=== PATIENT | female | born 1980 | race Caucasian/White ===

== ENCOUNTER 2019-11-15 09:00 | Emergency (ER) | payer OTHER, SELFPAY ==
[2019-11-15 09:03] VITALS: BP 139/118; PULSE 114; RESP 18; TEMP 36.7; O2SAT 98; BMI 37.1
--- NOTE | 2019-11-15 09:07 | ED_ITS ---
Entered by Rose Marie Patel, acting as scribe for Glen Fritz DO HPI - Neuro Symptoms/Deficit General: Chief Complaint: Neuro Symptoms/Deficit Stated Complaint: SMILE NOT RIGHT Time Seen by Provider: 11/15/19 09:08 Source: patient and family Mode of arrival: ambulatory Limitations: no limitations History of Present Illness: HPI Narrative: 38 yo female presents with Facial droop on the R and R eye droop. pt states this started yesterday. pt denies weakness in upper arms or lower legs. Patient has also noticed abnormal sensation in the anterior portion of her tongue. She has had some tearing of the right eye as well. On further discussion she notes it all began with onset of pain in her right ear and then the other symptoms began to progress. She is not had any difficulty with speech or swallowing. No difficulty with gait or balance. Onset (ago): day(s) (yesterday) Timing confirmed by: spouse and family member Location: right face History of same: No Severity: moderate Quality: constant Relieving factors: none Exacerbating factors: none Context: gradual onset Associated symptoms: Reports no associated symptoms; Deny chest pain, malaise, nausea or vomiting Treatments Prior to Arrival: none Review of Systems General: Reports: 10 or more systems reviewed and unremarkable except in HPI and below Const: Denies: fever, chills, body aches, change in appetite, fatigue or malaise ENMT: Denies: throat pain, ear pain, nasal discharge or nasal congestion Card: Denies: chest pain, edema, shortness of breath on exertion or shortness of breath when lying down Resp: Denies: shortness of breath, productive cough or non-productive cough GI: Denies: abdominal pain, nausea, vomiting, vomiting blood, coffee grounds in vomit, diarrhea, constipation, bloating, blood in stool or black tarry stool : Denies: flank pain, difficulty urinating, painful urination, urinary frequency or urinary urgency Skin/Breast: Denies: rash or itching Neuro: Reports: other (R face- mouth and R eye) PFS ED PFSH: Social History Smoking and tobacco status: never smoked NIH stroke score NIHSS: Level Of Consciousness - 1a: 0 Level Of Consciousness Questions - 1b: Both Correct Level Of Consciousness Commands - 1c: Both Correct Best Gaze - 2: Normal Visual [place] - 3: No Visual Loss Facial Palsy - 4: Partial Paralysis Motor Arm Right - 5: No Drift Motor Arm Left - 5: No Drift Motor Leg Right - 6: No Drift Motor Leg Left - 6: No Drift Limb Ataxia - 7: Absent Sensory - 8: Normal Best Language - 9: No Aphasia Dysarthia - 10: Normal Extinction And Inattention - 11: 0 Score: Total Score: 2 Physical Exam Narrative: EXAM NARRATIVE: pt has facial weakness on the Right, Right eye droop and watering. There is no sparing of the forehead. Const: COMMON NORMALS: no apparent distress GENERAL APPEARANCE: cooperative and comfortable ORIENTATION/CONSCIOUSNESS: Yes awake, Yes oriented to person, Yes oriented to place and Yes oriented to time HENMT: COMMON NORMALS: normocephalic, head/scalp atraumatic, hearing grossly normal bilaterally, external ears normal, EAC's normal, TM's normal bilaterally, nasal mucous membranes and turbinates normal, moist oral mucous membranes and oropharynx normal HEAD & SCALP: normocephalic and atraumatic NOSE: nasal mucous membranes and turbinates normal EXTERNAL EAR: Yes external ears normal EXTERNAL AUDITORY CANAL: EAC's normal TYMPANIC MEMBRANE: TM's normal bilat erally Neck/C-Spine: COMMON NORMALS: full ROM, no lymphadenopathy, supple and no JVD Lymph: LYMPHATIC: no lymphadenopathy noted and no lymphedema noted Resp: COMMON NORMALS: normal respiratory effort, no retractions, no use of accessory muscles and clear to auscultation bilaterally AUSCULTATION: clear to auscultation bilaterally Cardio: COMMON NORMALS: no JVD, regular rate, regular rhythm and no murmurs RATE: regular rate RHYTHM: regular rhythm GI: COMMON NORMALS: soft to palpation and no hepatosplenomegaly AUSCULTATION: Yes normoactive bowel sounds PALPATION: Yes soft, No tender, No guarding and Yes no hepatosplenomegaly Extremity: COMMON NORMALS: normal to inspection, normal capillary refill, no clubbing, cyanosis or edema, no calf tenderness and no pedal edema Neuro: SENSORIUM/ORIENTATION: Yes oriented to person, Yes oriented to place and Yes oriented to time OTHER: Stroke score is completed see below. Romberg's is negative. Lawr-du-idso is normal. Skin: COMMON NORMALS: no rashes or lesions noted GENERAL SKIN EXAM: no rashes or lesions noted Course ED course: Patient presents with essentially classic Burris's palsy symptoms reviewed with her in detail we will go ahead and put her on some prednisone for now did advise her this will affect her blood sugar significantly she is on a 5- day course of 60 mg follow-up with her primary care doctor. Vital Signs: Vital signs: Vital Signs Temperature 98.0 F 11/15/19 09:03 Pulse Rate 114 H 11/15/19 09:03 Respiratory Rate 18 11/15/19 09:03 Blood Pressure 139/118 11/15/19 09:03 Pulse Oximetry 98 11/15/19 09:03 Discharge Plan Discharge Patient Disposition: Home, Self-Care Clinical Impression: Burris's palsy Condition: Stable Prescriptions: New prednisone 20 mg tablet 20 mg PO DAILY Qty: 15 RF: 0 Discharge Orders: Discharge Order (Routine); Ordered 11/15/19 Ordered By: Glen Fritz Referrals: Isabelle Salas MD [Family Provider] - Discharge Diet: Usual diet Discharge Activity: Resume usual activity Activity Restrictions/Additional Instructions: Follow-up with your primary care doctor as needed Discharge Date/Time: 11/15/19 09:45 Coding Level of Care Code ED Manager Of Health for Chg Fwd Exam Comprehensive The documentation recorded by the Jorge dickens Bridget Annette, accurately reflects the service I personally performed and the decisions made by Catrina danielson Curtis L, DO Nov 15, 2019 09:00
== END 2019-11-15 09:45 | disposition home or self-care (01) ==
LOC: ER 09:52
PROVIDERS: Emergency Provider Family Medicine; Family Provider Family Medicine
DX: G51.0 Bell's palsy (principal)
CPT/HCPCS: 99281

== ENCOUNTER → 2020-05-08 11:38 | Outpatient (BNVA) | payer OTHER, SELFPAY | PROVIDERS: Family Provider Family Medicine; Visit Provider Nurse Practitioner Women's Health | DX: E11.9 Type 2 diabetes mellitus without complications (principal) | CPT/HCPCS: 83036 ==

== ENCOUNTER 2020-09-17 07:29 | Outpatient (CLI) | payer OTHER, SELFPAY ==
[2020-09-17 08:31] LABS: Basophils # 0.1 10^3/uL (0.0-0.1); Basophils % 0.8 %; Eosinophils # 0.1 10^3/uL (0.0-0.8); Eosinophils % 1.8 %; Hematocrit 46.2 % (37.0-47.0); Hemoglobin 15.7 g/dL (11.5-15.3); Lymphocytes % 25.1 %; Mean Corpuscular Hemoglobin 29.1 pg (28.0-34.0); Mean Corpuscular Volume 85.6 fL (81-99); Mean Platelet Volume 9.5 fL (7.4-10.4); Monocytes # 0.3 10^3/uL (0.2-0.9); Monocytes % 4.3 %; Neutrophils # 5.32 10^3/uL (1.8-7.7); Neutrophils % 66.7 %; Nucleated Red Blood Cells % 0 %; Platelet Count 270 10^3/cmm (130-400); Red Cell Distribution Width 14.8 % (12.1-15.1)
[2020-09-17 08:57] LABS: Alanine Aminotransferase 35 U/L (0-33); Alkaline Phosphatase 104 IU/L (35-105); Anion Gap 14.1 (5-19); Aspartate Amino Transferase 22 U/L (0-32); Blood Urea Nitrogen 10 mg/dL (6-20); Carbon Dioxide 26 mmol/L (22-29); Chloride 100 mmol/L (98-107); Cholesterol 171 mg/dL (0-200); Globulin 2.9 g/dL (1.3-4.6); Glomerular Filtration Rate 136.6 mL/min (90-130); Glucose 211 mg/dL (65-115); HDL Cholesterol 45 mg/dL (60-100); LDL Cholesterol Calculated 95 mg/dL (50-129); LDL HDL Ratio 2.11 RATIO (0.00-3.22); Osmolality Calculated 287 mOsm/kg (285-295); Potassium 4.1 mmol/L (3.5-5.1); Sodium 136 mmol/L (136-145); Thyroid Stimulating Hormone 1.33 uIU/mL (0.27-4.20); Total Bilirubin 0.6 mg/dL (0.15-1.2); Total Protein 6.9 g/dL (6.6-8.7); Triglycerides 153 mg/dL (0-150)
[2020-09-17 09:01] LABS: Creatinine Urine, Random 62 mg/dL (28-217)
[2020-09-17 09:24] LABS: Microalbum Creatinine Ratio Ur 16 mg/dL (0-20); Microalbumin Random Urine < 1 ug/dL (0-20)
[2020-09-17 13:10] LABS: Estmated Average Glucose 194; Hemoglobin A1C 8.4 % (4.0-6.0)
== END 2020-09-17 07:30 | disposition home or self-care (01) ==
LOC: LAB 07:33
PROVIDERS: PCP Family Medicine; Visit Provider Family Medicine
DX: Z91.19 Patient's noncompliance with other medical treatment and regimen (principal); D58.2 Other hemoglobinopathies
CPT/HCPCS: 36415; 80053; 80061; 82044; 83036; 84443; 85025

== ENCOUNTER 2020-12-17 06:43 | Outpatient (CLI) | payer OTHER, SELFPAY ==
[2020-12-17 07:29] LABS: Alanine Aminotransferase 40 U/L (0-33); Alkaline Phosphatase 100 IU/L (35-105); Anion Gap 12.2 (5-19); Aspartate Amino Transferase 22 U/L (0-32); Blood Urea Nitrogen 12 mg/dL (6-20); Calcium 8.9 mg/dL (8.5-10.5); Carbon Dioxide 27 mmol/L (22-29); Chloride 101 mmol/L (98-107); Globulin 3.2 g/dL (1.3-4.6); Glomerular Filtration Rate 175.9 mL/min (90-130); Glucose 246 mg/dL (65-115); Osmolality Calculated 290 mOsm/kg (285-295); Potassium 4.2 mmol/L (3.5-5.1); Sodium 136 mmol/L (136-145); Total Bilirubin 0.5 mg/dL (0.15-1.2); Total Protein 7.2 g/dL (6.6-8.7)
[2020-12-17 07:31] LABS: Estmated Average Glucose 220; Hemoglobin A1C 9.3 % (4.0-6.0)
== END 2020-12-17 06:44 | disposition home or self-care (01) ==
LOC: LAB 06:45
PROVIDERS: PCP Family Medicine; Visit Provider Family Medicine
DX: E11.9 Type 2 diabetes mellitus without complications (principal); E78.1 Pure hyperglyceridemia; G47.00 Insomnia, unspecified; K76.0 Fatty (change of) liver, not elsewhere classified
CPT/HCPCS: 36415; 80053; 83036

== ENCOUNTER 2021-01-15 16:37 | Outpatient (CLI) | payer OTHER, SELFPAY ==
--- NOTE | 2021-01-15 16:46 | XRR_ITS ---
PROCEDURE INFORMATION: Exam: XR Left Humerus Exam date and time: 01/15/2021 4:48 PM Age: 40 years old Clinical indication: Pain; Elbow; Left; Additional info: Pain lt. Upper arm TECHNIQUE: Imaging protocol: XR Left humerus. Views: 2 or more views. Total images: 2 COMPARISON: No relevant prior studies available. FINDINGS: Bones/joints: Normal. Soft tissues: Normal. XR/[place] [id number] IMPRESSION: No acute findings.
--- NOTE | 2021-01-15 16:47 | XRR_ITS ---
PROCEDURE INFORMATION: Exam: XR Cervical Spine Exam date and time: 01/15/2021 4:48 PM Age: 40 years old Clinical indication: Neck pain; Additional info: Acute neck pain TECHNIQUE: Imaging protocol: XR of the cervical spine. Views: 2 or 3 views. Total images: 3 COMPARISON: No relevant prior studies available. FINDINGS: Bones/joints: No visible acute osseous abnormality. Evidence of early degenerative disease. Intervertebral disc space heights preserved. No visible significant facet arthrosis. Early spondylosis deformans. No spondylolisthesis. Soft tissues: Unremarkable. XR/XR cervical spine 3V* [id number] IMPRESSION: Nonacute.
== END 2021-01-15 16:38 | disposition home or self-care (01) ==
PROVIDERS: PCP Family Medicine; Visit Provider Nurse Practitioner Family
DX: M79.622 Pain in left upper arm (principal); M25.522 Pain in left elbow; M54.2 Cervicalgia; V89.2XXA Person injured in unspecified motor-vehicle accident, traffic, initial encounter
CPT/HCPCS: 72040; 73060

== ENCOUNTER 2021-03-04 15:59 | Outpatient (CLI) | payer OTHER, SELFPAY ==
--- NOTE | 2021-03-04 16:13 | MR_ITS ---
WS: [id number] MRI OF THE LEFT ELBOW WITHOUT GADOLINIUM ENHANCEMENT INDICATION: Left elbow pain. Left elbow trauma. TECHNIQUE: MRI left elbow without gadolinium enhancement. Axial T1 and T2 coronal T1 PD coronal STIR sagittal PD imaging axial FSPGR FINDINGS: Normal radial head and neck. Normal olecranon. Mild soft tissue edema dorsal elbow. No evid ence of olecranon bursitis. Normal coronoid process. Irregularity with increased signal and edema involving the lateral humeral epicondyle and capitellum . Increased signal involving the common extensor tendon origin consistent with partial tear and tendi nitis. Small amount of fluid along the origin of the common extensor tendon. Recommend correlation fo r lateral elbow pain. Slight irregularity involving the lateral humeral epicondyle. CT could be obtai madhav to evaluate for a small avulsion fracture. Small amount of fluid along the radial collateral liga ment which appears intact. Normal medial epicondyle. Normal bone marrow signal in the distal humeral shaft. Normal ulnar collate ral ligament. MR/MR elbow LT wo con* [id number] IMPRESSION: 1. Increased signal involving the common extensor tendon origin consistent wit h partial tear and tendinitis. 2. Radial head and neck appear normal. 3. Irregularity with increased signal and edema involving the lateral humeral epicondyle and capitellum.CT could be obtained to evaluate for a small avulsion fracture. 4. Small amount of fluid along the radial collateral ligament which appears in tact.
== END 2021-03-04 16:00 | disposition home or self-care (01) ==
LOC: RADSHAW 16:04
PROVIDERS: PCP Family Medicine; Visit Provider Family Medicine
DX: M25.522 Pain in left elbow (principal); R60.0 Localized edema
CPT/HCPCS: 73221

== ENCOUNTER 2021-04-30 14:30 | Outpatient (CLI) | payer OTHER, SELFPAY ==
--- NOTE | 2021-04-30 14:33 | MM_ITS ---
WS: [id number] SCREENING DIGITAL MAMMOGRAM WITH CAD HISTORY: SCREENING COMPARISON: 12/06/2018 Bilateral CC and MLO views submitted. Computer aided detection analyzed. Breast composition: There are scattered areas of fibroglandular density. No suspicious masses, microc alcifications or architectural distortion. MM/[place] [id number] IMPRESSION: BI-RADS: 1-Negative FOLLOW UP: 1 Year Follow-up
== END 2021-04-30 14:31 | disposition home or self-care (01) ==
LOC: RADSHAW 14:32
PROVIDERS: PCP Family Medicine; Visit Provider Family Medicine
DX: Z12.31 Encounter for screening mammogram for malignant neoplasm of breast (principal)
CPT/HCPCS: 77067

== ENCOUNTER 2022-05-24 10:16 | Outpatient (CLI) | payer OTHER, SELFPAY ==
--- NOTE | 2022-05-24 10:22 | MM_ITS ---
WS: [id number] BILATERAL SCREENING DIGITAL TOMOSYNTHESIS MAMMOGRAM WITH CAD HISTORY: SCREENING COMPARISON: 04/30/2021 and 12/06/2018 Bilateral CC and MLO views with tomosynthesis and synthetic mammography submitted. Computer aided det ection analyzed. Breast composition: There are scattered areas of fibroglandular density. No suspicious masses, microc alcifications or architectural distortion. MM/[place] [id number] IMPRESSION: BI-RADS: 1-Negative FOLLOW UP: 1 Year Follow-up
== END 2022-05-24 10:17 | disposition home or self-care (01) ==
PROVIDERS: PCP Family Medicine; Visit Provider Family Medicine
DX: Z12.31 Encounter for screening mammogram for malignant neoplasm of breast (principal)
CPT/HCPCS: 77063; 77067

== ENCOUNTER 2023-06-18 13:03 | Emergency (ER) | payer OTHER, SELFPAY ==
[2023-06-18 13:26] VITALS: BP 144/82; PULSE 129; RESP 18; TEMP 38.9; O2SAT 98; BMI 37.1
--- NOTE | 2023-06-18 13:40 | XRR_ITS ---
PROCEDURE INFORMATION: Exam: XR Chest Exam date and time: 06/18/2023 2:04 PM Age: 42 years old Clinical indication: Fever TECHNIQUE: Imaging protocol: Radiologic exam of the chest. Views: 1 view. COMPARISON: CR XR cervical spine 3V* [id number] 01/15/2021 4:51 PM FINDINGS: Lungs: Unremarkable. No consolidation. Pleural spaces: Unremarkable. No pleural effusion. No pneumothorax. Heart/Mediastinum: Unremarkable. No cardiomegaly. Bones/joints: Unremarkable. XR/XR chest 1V portable [id number] IMPRESSION: No acute findings.
--- NOTE | 2023-06-18 13:43 | ED_ITS ---
HPI - Headache General: Chief Complaint: Headache Stated Complaint: headache, Fever, bit by cat monday Time Seen by Provider: 06/18/23 13:40 History of Present Illness: 42-year-old female comes in today for complaints of fever starting on Monday. Patient reports 1 week ago she was bit by a cat and is concerned she may have gotten infection from the cat or has a urinary tract infection. Patient reports feeling weak and has a headache with the fever. Patient appears unwell but not toxic. Patient is alert and oriented. Patient moves all extremities well. Examination of the wound from the cat bite note some mild redness at the puncture sites. No significant induration or swelling. Patient has a history of type 2 diabetes and takes medicine for depression. Associated symptoms: Reports fever(s) Review of Systems Const: Reports: fever(s) : Reports: difficulty voiding PFSH ED PFSH: Medical History Anxiety Genital herpes H/O Burris's palsy No pertinent past medical history neghx: htn,thyroid,dvt/pe Type 2 diabetes mellitus Surgical History H/O carpal tunnel repair Both--Performed at [facility] [place] and surgical center H/O section --2001 2--2005 11--2010 Family History Father Hypertension Diabetes Mother Diabetes Grandmother Heart disease Maternal grandmother Ovarian cancer Maternal grandmother Uterine cancer Maternal grandmother Family/Other Colon cancer Paternal uncle Breast cancer Paternal aunt Maternal great aunt Paternal great aunt Grandfather Stroke Maternal grandfather Denies family history of Hyperlipidemia Family history of thyroid problem Social History Additional social history: - Tobacco use: Denies Alcohol use: Denies Drug use: Denies Physical Exam Const: COMMON NORMALS: alert HENMT: COMMON NORMALS: normocephalic HEAD & SCALP: normocephalic Neck/C-Spine: COMMON NORMALS: full ROM and no meningeal signs Resp: COMMON NORMALS: normal respiratory effort and clear to auscultation bilaterally AUSCULTATION: clear to auscultation bilaterally Cardio: COMMON NORMALS: regular rate and regular rhythm RATE: regular rate RHYTHM: regular rhythm GI: COMMON NORMALS: Soft to palpation and non-tender PALPATION: Yes Soft to palpation : COMMON NORMALS: Yes no CVA tenderness BLADDER/KIDNEY EXAM: Yes no CVA tenderness Back/Pelvis: COMMON NORMALS: no CVA tenderness Extremity: COMMON NORMALS: normal to inspection and no pedal edema Neuro: SENSORIUM/ORIENTATION: Yes alert MENINGEAL SIGNS: Yes no meningeal signs Skin: TRAUMA: puncture (Healing puncture wounds right hand) Course Vital Signs: Vital signs: Vital Signs Temperature 99.4 F 06/18/23 15:43 Pulse Rate 129 H 06/18/23 13:26 Respiratory Rate 16 06/18/23 15:43 Blood Pressure 144/82 06/18/23 13:26 Pulse Oximetry 98 06/18/23 13:26 Oxygen Delivery Me thod Room Air 06/18/23 13:26 MDM - Headache Medical Decision Making Patient comes in today for complaints of fever starting on Monday. Patient also reports headache and pain to the axillary arm. Patient reports having a cat bite on Monday and believes that her symptoms may be secondary to the cat bite. Patient appears nontoxic. Patient appears in mild pain. No focal neural deficits are noted. No meningeal signs are noted. Respirations are even lungs are clear to auscultation. Abdomen soft and nontender. No CVA tenderness is noted. Differential diagnosis includes but not limited to viral syndrome, upper respiratory infection, infected animal bite, pneumonia, urinary tract infection, fever of unknown origin. CBC was unremarkable. CMP noted some mild decrease in sodium at 131, CRP was 112. Urinalysis was unremarkable. COVID-19 antigen test and influenza test were negative. Blood cultures were taken. Patient was treated with 1 L of IV fluid for mild dehydration, patient was given 100 mg doxycycline IV. She was treated for her headache with acetaminophen and Toradol and metoclopramide. Patient had some relief in headache. Patient probably has a infection due to animal bite. We will continue patient on the doxycycline 100 mg twice a day for 10 days. Patient was recommended to monitor for worsening symptoms such as severe chest pain, shortness of breath, or persistent fever. Patient reported understanding and agreed to plan. Lab Data 06/18/23 14:32 06/18/23 14:32 Radiology Impressions Chest X-Ray 06/18/23 13:40 IMPRESSION: No acute findings. Laboratory Results WBC 10.93 10^3/uL (3.29-11.43) 06/18/23 14: RBC 5.45 10^6/uL (3.85-5.65) 06/18/23 14:32 Hgb 15.90 g/dL (11.27-16.99) 06/18/23 14:32 Hct 46.1 % (36-47) 06/18/23 14:32 MCV 84.6 fl (85-98) L 06/18/23 14:32 MCH 29.2 pg (27-33) 06/18/23 14: MCHC 34.5 g/dL (30-55) 06/18/23 14: RDW 14.6 % (12.1-15.1) 06/18/23 14: Plt Count 229 10^3/cmm (157-399) 06/18/23 14:32 MPV 9.4 fL (7.4-10.4) 06/18/23 14:32 Neut % (Auto) 87.8 % 06/18/23 14:32 Lymph % (Auto) 6.0 % 06/18/23 14:32 [place] % (Auto) 5.2 % 06/18/23 14:32 Eos % (Auto) 0.0 % 06/18/23 14:32 Baso % (Auto) 0.3 % 06/18/23 14:32 Neut # (Auto) 9.59 10^3/uL (1.8-7.7) H 06/18/23 14:32 Lymph # (Auto) 0.7 10^3/uL (0.8-4.8) L 06/18/23 14:32 [place] # (Auto) 0.6 10^3/uL (0.2-0.9) 06/18/23 14:32 Eos # (Auto) 0.0 10^3/uL (0.0-0.8) 06/18/23 14:32 Baso # (Auto) 0.0 10^3/uL (0.0-0.1) 06/18/23 14:32 Nucleated RBC % (auto) 0 % 06/18/23 14:32 Nucleated RBCs # 0.0 /100WBC 06/18/23 14:32 ESR 14 mm/hr (0-15) 06/18/23 14:32 Sodium 131 mmol/L (136-145) L 06/18/23 14:32 Potassium 3.9 mmol/L (3.5-5.1) 06/18/23 14:32 Chloride 97 mmol/L (98-107) L 06/18/23 14:32 Carbon Dioxide 23 mmol/L (22-29) 06/18/23 14:32 Anion Gap 14.9 (5-19) 06/18/23 14:32 BUN 11 mg/dL (6-20) 06/18/23 14:32 Creatinine 0.6 mg/dL (0.5-0.9) 06/18/23 14:32 GFR Calculation 109.1 mL/min (90-130) 06/18/23 14:32 Glucose 281 mg/dL (65-115) H 06/18/23 14:32 Calculated Osmolality 282 mOsm/kg (285-295) L 06/18/23 14:32 Lactic Acid 2.0 mmol/L (0.5-2.2) 06/18/23 14:32 Calcium 8.7 mg/dL (8.5-10.5) 06/18/23 14:32 Total Bilirubin 0.9 mg/dL (0.15-1.2) 06/18/23 14:32 AST 19 U/L (0-32) 06/18/23 14:32 ALT 26 U/L (0-33) 06/18/23 14:32 Alkaline Phosphatase 103 U/L (35-105) 06/18/23 14:32 C-Reactive Protein 112.8 mg/L (0.0-4.9) H 06/18/23 14:32 Total Protein 7.1 g/dL (6.6-8.7) 06/18/23 14:32 Albumin 3.9 g/dL (3.5-5.2) 06/18/23 14:32 Globulin 3.2 g/dL (1.3-4.6) 06/18/23 14:32 HCG, Qual Negative (Negative) 06/18/23 14:32 Urine Color Yellow (Yellow) 06/18/23 16:24 Urine Appearance Clear (CLEAR) 06/18/23 16:24 Urine pH 6 (5-7) 06/18/23 16:24 Ur Specific [place] 1.010 (1.005-1.030) 06/18/23 16:24 Urine Protein Neg (Negative) 06/18/23 16:24 Urine Glucose (UA) 4+ (Normal) H 06/18/23 16:24 Urine Ketones 2+ (Negative) H 06/18/23 16:24 Urine Blood Neg (Negative) 06/18/23 16:24 Urine Nitrate Negative (Negative) 06/18/23 16:24 Urine Bilirubin Neg (Negative) 06/18/23 16:24 Urine Urobilinogen 4 mg/dL (Negative) H 06/18/23 16:24 Ur Leukocyte Esterase Negative (Negative) 06/18/23 16:24 Influenza Type A Ag negative (Negative) 06/18/23 15:41 Influenza Type B Ag negative (Negative) 06/18/23 15:41 SARS-CoV-2 Ag (Rapid) negative (Negative) 06/18/23 15:41 All radiology interpretation(s) finalized by discharge Discharge Plan Discharge Patient Disposition: Home Clinical Impression: Animal bite of right hand with infection Qualifiers: Encounter type: initial encounter Qualified Code(s): S61.451A - Open bite of right hand, initial encounter Condition: Stable Prescriptions: New doxycycline hyclate 100 mg capsule 100 mg PO BID 10 Days Qty: 20 0RF No Action Mirena 20 mcg/24 hours (5 yrs) 52 mg intrauterine device 1 device INTRAUTERI .Q5 YEARS citalopram [Celexa] 40 mg tablet 40 mg PO DAILY metformin 750 mg tablet extended release 24 hr 750 mg PO DAILY Jardiance 25 mg tablet 25 mg PO DAILY Trulicity 1.5 mg/0.5 mL pen injector 1.5 mg SUBCUT Q7D Rx Instructions: (ON WEEKEND) omeprazole 40 mg capsule,delayed release(DR/EC) 40 mg PO DAILY Discharge Orders: Discharge ED (Routine); Ordered 06/18/23 Ordered By: Angel Colmenares Referrals: Isabelle Salas MD [Primary Care Provider] - Discharge Diet: Usual diet Discharge Activity: Increase activity as tolerated Patient Instructions: Animal Bite (ED) Activity Restrictions/Additional Instructions: Continue on antibiotics as directed. Drink plenty of water with medications. Acetaminophen ibuprofen for pain and fever. Follow-up with primary care in 2 to 3 days. Return to ED for worsening symptoms such as inability to hold fluids down, persistent fever lasting longer than 2 days, increasing redness and swelling of the extremity, severe chest pain, worsening shortness of breath, or new concerns. Coding Level of Care Code ED [employer] Extension Specialist for Darby Pimentel
[2023-06-18] MEDS: acetaminophen 500 mg Tablet 1000 MG PO (13:52)
[2023-06-18] MEDS: sodium chloride 0.9% 1,000 ML 999 ML IV (14:25)
[2023-06-18] MEDS: metoclopramide 5 mg/mL SDV 2 mL 10 MG IVP (14:27)
[2023-06-18 14:50] LABS: Basophils % 0.3 %; Hematocrit 46.1 % (36-47); Lymphocytes # 0.7 10^3/uL (0.8-4.8); Mean Corpuscular HGB Conc 34.5 g/dL (30-55); Mean Corpuscular Hemoglobin 29.2 pg (27-33); Mean Corpuscular Volume 84.6 fl (85-98); Mean Platelet Volume 9.4 fL (7.4-10.4); Monocytes # 0.6 10^3/uL (0.2-0.9); Monocytes % 5.2 %; Neutrophils # 9.59 10^3/uL (1.8-7.7); Neutrophils % 87.8 %; Nucleated Red Blood Cells % 0 %; Platelet Count 229 10^3/cmm (157-399); Red Blood Count 5.45 10^6/uL (3.85-5.65); Red Cell Distribution Width 14.6 % (12.1-15.1); White Blood Count 10.93 10^3/uL (3.29-11.43)
[2023-06-18 14:53] LABS: Erythrocyte Sedimentation Rate 14 mm/hr (0-15)
[2023-06-18 15:09] LABS: HCG, Serum Qual Negative (Negative)
[2023-06-18 15:13] LABS: Alanine Aminotransferase 26 U/L (0-33); Albumin Level 3.9 g/dL (3.5-5.2); Alkaline Phosphatase 103 U/L (35-105); Anion Gap 14.9 (5-19); Aspartate Amino Transferase 19 U/L (0-32); Blood Urea Nitrogen 11 mg/dL (6-20); C Reactive Protein 112.8 mg/L (0.0-4.9); Calcium 8.7 mg/dL (8.5-10.5); Carbon Dioxide 23 mmol/L (22-29); Chloride 97 mmol/L (98-107); Globulin 3.2 g/dL (1.3-4.6); Glomerular Filtration Rate 109.1 mL/min (90-130); Glucose 281 mg/dL (65-115); Osmolality Calculated 282 mOsm/kg (285-295); Potassium 3.9 mmol/L (3.5-5.1); Sodium 131 mmol/L (136-145); Total Bilirubin 0.9 mg/dL (0.15-1.2); Total Protein 7.1 g/dL (6.6-8.7)
[2023-06-18 15:43] VITALS: RESP 16; TEMP 37.4
[2023-06-18 16:04] LABS: Influenza A by IFA negative (Negative); Influenza B by IFA negative (Negative); SARS Covid-2 Antigen negative (Negative)
[2023-06-18] MEDS: ketorolac 30 mg/mL INJ 15 MG IVP (16:07)
[2023-06-18] MEDS: doxycycline 100 MG in sodium chloride 0.9% (plus) 100 ML IV (16:08)
[2023-06-18 16:51] LABS: Add Urine Microscopic? NO; Charge for UA Resulting for Rev
[2023-06-18 16:56] LABS: Bilirubin Urine Neg (Negative); Blood Urine Neg (Negative); Glucose Urine UA 4+ (Normal); Ketones Urine 2+ (Negative); Nitrate Urine Negative (Negative); Protein Urine Neg (Negative); Urine Appearance Clear (CLEAR); Urine Color Yellow (Yellow); pH Urine 6 (5-7)
[2023-06-18 16:57] LABS: Leukocyte Esterase Urine Negative (Negative); Urobilinogen Urine 4 mg/dL (Negative)
== END 2023-06-18 17:33 | disposition home or self-care (01) ==
PROVIDERS: Emergency Provider Nurse Practitioner Family; PCP Family Medicine
DX: S61.451A Open bite of right hand, initial encounter (principal); Z79.85 Long-term (current) use of injectable non-insulin antidiabetic drugs; Z79.84 Long term (current) use of oral hypoglycemic drugs; Z11.52 Encounter for screening for COVID-19; E11.9 Type 2 diabetes mellitus without complications; W55.01XA Bitten by cat, initial encounter
CPT/HCPCS: 36415; 71045; 80053; 81003; 83605; 84703; 85025; 85651; 86140; 87040; 87426; 87804; 96365; 96375; 99284; J1885; J2765; J3490; J7030

== ENCOUNTER 2024-01-15 18:03 | Emergency (ER) | payer OTHER, SELFPAY ==
[2024-01-15 18:15] VITALS: BP 137/83; PULSE 97; RESP 16; TEMP 36.7; O2SAT 97; BMI 35.8
--- NOTE | 2024-01-15 19:18 | ED_ITS ---
Documented by User: COOPER Mendzoa 01/15/24 19:24 HPI - Skin/Abscess/Foreign Bdy General: Chief complaint: Skin/Abscess/Foreign Body Stated complaint: right leg pain Time Seen by Provider: 01/15/24 18:28 History of Present Illness: Patient is a 43-year-old female presenting to the emergency department complaining of lesion to right lower extremity. She does note she is diabetic and is concerned that she is dealing with an abscess. She was previously seen in urgent care however sent over for further evaluation. She is denying any systemic symptoms such as fever, nausea or vomiting, chest pain, or shortness of breath. She denies any recent trauma or injury to the right lower extremity. She denies history of diabetic foot ulcers. She states her blood sugars are normally in control. Has not tried anything for her pain, which she is reporting over the wound. Associated symptoms: Deny chills, fever(s), nausea or vomiting Review of Systems General: Reports: 10 or more systems reviewed and unremarkable except in HPI and below Const: Denies: fever(s) or chills Card: Denies: chest pain, palpitations, lightheadedness or syncope Resp: Denies: dyspnea, productive cough or wheezing GI: Denies: abdominal pain, nausea, vomiting or diarrhea Musc: Reports: extremity pain (Right lower extremity); Denies: neck pain, back pain or joint pain Skin/Breast: Reports: erythema, skin pain, skin tenderness, new lesions (Right lower extremity) and other (Denies red streaking); Denies: pruritus PFSH ED PFSH: Medical History H/O Burris's palsy Genital herpes No pertinent past medical history neghx: htn,thyroid,dvt/pe Anxiety Type 2 diabetes mellitus Surgical History H/O carpal tunnel repair Both--Performed at [facility] and surgical center H/O section 1--2001 2--2005 3--2010 Family History Father Hypertension Diabetes Mother Diabetes Grandmother Heart disease Maternal grandmother Ovarian cancer Maternal grandmother Uterine cancer Maternal grandmother Family/Other Colon cancer Paternal uncle Breast cancer Paternal aunt Maternal great aunt Paternal great aunt Grandfather Stroke Maternal grandfather Denies family history of Hyperlipidemia Family history of thyroid problem Social History Additional social history: - Tobacco use: Denies Alcohol use: Denies Drug use: Denies Physical Exam Const: COMMON NORMALS: no acute distress, patient oriented x3 and no limitations GENERAL APPEARANCE: cooperative, comfortable and well developed ORIENTATION/CONSCIOUSNESS: Yes awake, Yes oriented to person, Yes oriented to place and Yes oriented to time HENMT: COMMON NORMALS: normocephalic, atraumatic and hearing grossly normal bilaterally HEAD & SCALP: normocephalic and atraumatic Eye: COMMON NORMALS: Equal, round and reactive pupils present, EOMs intact bilaterally and conjunctivae normal CONJUNCTIVA: Yes conjunctivae normal PUPIL: Yes Equal, round and reactive pupils present Neck/C-Spine: COMMON NORMALS: full ROM, supple and no JVD Resp: COMMON NORMALS: normal respiratory effort, No retractions, No use of accessory muscles and clear to auscultation bilaterally AUSCULTATION: clear to auscultation bilaterally Cardio: COMMON NORMALS: no JVD, regular rate, regular rhythm, No clicks present (Cardio), No murmurs present (Cardio) and No rub (Cardio) RATE: regular rate RHYTHM: regular rhythm Extremity: COMMON NORMALS: full ROM and capillary refill normal Neuro: COMMON NORMALS: patient oriented x3, moves all extremities, no focal motor deficits and no sensory deficits noted SENSORIUM/ORIENTATION: Yes oriented to person, Yes oriented to place and Yes oriented to time Psych: COMMON NORMALS: mental status grossly normal and Normal thought process present THOUGHT PROCESS: Normal thought process present Skin: NARRATIVE SKIN EXAM: There is an open, draining wound over the lateral aspect of the patient's right distal leg. There is mild surrounding erythema, no fluctuance or induration noted. The wound is further probed and purulent drainage is expressed. The area is exquisitely tender to the touch. No other wounds noted. No red streaking. Course Vital Signs: Vital signs: Vital Signs Temperature 98.1 F 01/15/24 18:15 Pulse Rate 68 01/15/24 19:25 Respiratory Rate 18 01/15/24 19:25 Blood Pressure 128/72 01/15/24 19:25 Pulse Oximetry 97 01/15/24 19:25 Oxygen Delivery Me thod Room Air 01/15/24 18:15 MDM - Skin/Abscess/Foreign Bdy Medicial Decision Making Patient presents with a wound to the right lower leg that she noticed today. History of diabetes. Was seen in urgent care and sent over for further evaluation. She was afebrile on arrival with normal vitals. Patient was nontoxic-appearing and examination did reveal a lesion to the right lower leg that I was able to drain purulent drainage from. There is no other fluctuance or suspicion for underlying abscess. I will treat her with topical and oral antibiotic, and strict return precautions were given in the case that there is further infection. However I discussed proper wound care and importance of monitoring blood sugars. She will follow-up with primary care as needed and return for further evaluation if her condition worsens. No radiology studies performed this visit Discharge Plan Discharge Patient Disposition: Home Clinical Impression: Abscess of skin or subcutaneous tissue Qualifiers: Site of cutaneous abscess: extremity Site of cutaneous abscess of extremity: lower extremity Laterality: right Qualified Code(s): L02.415 - Cutaneous abscess of right lower limb Condition: Stable Prescriptions: New bacitracin 500 unit/gram ointment 1 applic topical BID Qty: 1022.4 0RF Bactrim DS 800-160 mg tablet 1 tab PO DAILY 7 Days Qty: 7 0RF No Action Mirena 20 mcg/24 hours (5 yrs) 52 mg intrauterine device 1 device INTRAUTERI .Q5 YEARS citalopram [Celexa] 40 mg tablet 40 mg PO DAILY metformin 750 mg tablet extended release 24 hr 750 mg PO DAILY Jardiance 25 mg tablet 25 mg PO DAILY Trulicity 1.5 mg/0.5 mL pen injector 1.5 mg SUBCUT Q7D Rx Instructions: (ON WEEKEND) omeprazole 40 mg capsule,delayed release(DR/EC) 40 mg PO DAILY Discharge Orders: Discharge ED (Routine); Ordered 01/15/24 Ordered By: Mu Irvin Referrals: Isabelle Salas MD [Primary Care Provider] - Discharge Diet: Usual diet Discharge Activity: Increase activity as tolerated Patient Instructions: Cellulitis (ED), Abscess (ED), Pain Management Activity Restrictions/Additional Instructions: Bactrim and bacitracin as prescribed. You may apply ice for added relief. Alternate Tylenol and ibuprofen as instructed. Please monitor for any worsening signs of infection such as increased pain or swelling, and return for reevaluation. Keep a close monitor of your blood sugars. Follow-up with primary care as needed. Coding Level of Care Code ED Knit Goods Press Hand for Chg Fwd Documented by User: Glen Fritz DO 01/18/24 06:13 HPI - Skin/Abscess/Foreign Bdy General: Chief complaint: Skin/Abscess/Foreign Body Stated complaint: right leg pain Time Seen by Provider: 01/15/24 18:28 PFSH ED PFSH: Medical History H/O Burris's palsy Genital herpes No pertinent past medical history neghx: htn,thyroid,dvt/pe Anxiety Type 2 diabetes mellitus Surgical History H/O carpal tunnel repair Both--Performed at [facility] and surgical center H/O section 1--2001 2--2005 3--2010 Family History Father Hypertension Diabetes Mother Diabetes Grandmother Heart disease Maternal grandmother Ovarian cancer Maternal grandmother Uterine cancer Maternal grandmother Family/Other Colon cancer Paternal uncle Breast cancer Paternal aunt Maternal great aunt Paternal great aunt Grandfather Stroke Maternal grandfather Denies family history of Hyperlipidemia Family history of thyroid problem Social History Additional social history: - Tobacco use: Denies Alcohol use: Denies Drug use: Denies Course Vital Signs: Vital signs: Vital Signs Temperature 98.1 F 01/15/24 18:15 Pulse Rate 68 01/15/24 19:25 Respiratory Rate 18 01/15/24 19:25 Blood Pressure 128/72 01/15/24 19:25 Pulse Oximetry 97 04/29/24 19:25 Oxygen Delivery Me thod Room Air 01/15/24 18:15 MDM - Skin/Abscess/Foreign Bdy Medicial Decision Making Patient presents with a wound to the right lower leg that she noticed today. History of diabetes. Was seen in urgent care and sent over for further evaluation. She was afebrile on arrival with normal vitals. Patient was nontoxic-appearing and examination did reveal a lesion to the right lower leg that I was able to drain purulent drainage from. There is no other fluctuance or suspicion for underlying abscess. I will treat her with topical and oral antibiotic, and strict return precautions were given in the case that there is further infection. However I discussed proper wound care and importance of monitoring blood sugars. She will follow-up with primary care as needed and return for further evaluation if her condition worsens. Chart reviewed Discharge Plan Discharge Patient Disposition: Home Clinical Impression: Abscess of skin or subcutaneous tissue Qualifiers: Site of cutaneous abscess: extremity Site of cutaneous abscess of extremity: lower extremity Laterality: right Qualified Code(s): L02.415 - Cutaneous abscess of right lower limb Condition: Stable Prescriptions: New bacitracin 500 unit/gram ointment 1 applic topical BID Qty: 1022.4 0RF Bactrim DS 800-160 mg tablet 1 tab PO DAILY 7 Days Qty: 7 0RF No Action Mirena 20 mcg/24 hours (5 yrs) 52 mg intrauterine device 1 device INTRAUTERI .Q5 YEARS citalopram [Celexa] 40 mg tablet 40 mg PO DAILY metformin 750 mg tablet extended release 24 hr 750 mg PO DAILY Jardiance 25 mg tablet 25 mg PO DAILY Trulicity 1.5 mg/0.5 mL pen injector 1.5 mg SUBCUT Q7D Rx Instructions: (ON WEEKEND) omeprazole 40 mg capsule,delayed release(DR/EC) 40 mg PO DAILY Discharge Orders: Discharge ED (Routine); Ordered 01/15/24 Ordered By: Mu Irvin Referrals: Isabelle Salas MD [Primary Care Provider] - Discharge Diet: Usual diet Discharge Activity: Increase activity as tolerated Patient Instructions: Cellulitis (ED), Abscess (ED), Pain Management Activity Restrictions/Additional Instructions: Bactrim and bacitracin as prescribed. You may apply ice for added relief. Alternate Tylenol and ibuprofen as instructed. Please monitor for any worsening signs of infection such as increased pain or swelling, and return for reevaluation. Keep a close monitor of your blood sugars. Follow-up with primary care as needed. Coding Level of Care Code ED Knit Goods Press Hand for Darby Pimentel
[2024-01-15 19:25] VITALS: BP 128/72; PULSE 68; RESP 18; O2SAT 97
[2024-01-15] MEDS: sulfamethoxazole-trimeth DS 160-800 mg Tablet 1 TAB PO (19:28)
== END 2024-01-15 19:28 | disposition home or self-care (01) ==
PROVIDERS: Emergency Provider Physician Assistant; PCP Family Medicine
DX: L02.415 Cutaneous abscess of right lower limb (principal); Z79.85 Long-term (current) use of injectable non-insulin antidiabetic drugs; Z79.84 Long term (current) use of oral hypoglycemic drugs; E11.9 Type 2 diabetes mellitus without complications
CPT/HCPCS: 99283

== ENCOUNTER 2024-12-23 07:56 | Outpatient (CLI) | payer OTHER, SELFPAY ==
--- NOTE | 2024-12-23 07:58 | MM_ITS ---
WS: [id number] BILATERAL SCREENING DIGITAL TOMOSYNTHESIS MAMMOGRAM WITH CAD HISTORY: SCREENING COMPARISON: 05/24/2022, 04/30/2021 Bilateral CC and MLO views with tomosynthesis and synthetic mammography submitted. Computer aided detection analyzed. Breast composition: There are scattered areas of fibroglandular density. No suspicious masses, microcalcifications or architectural distortion. MM/MM scr BI tomosynthesis [id number] IMPRESSION: BI-RADS: 1 - Negative. FOLLOW UP: 1 Year Follow-up
== END 2024-12-23 07:57 | disposition home or self-care (01) ==
PROVIDERS: PCP Family Medicine; Visit Provider Family Medicine
DX: Z12.31 Encounter for screening mammogram for malignant neoplasm of breast (principal); R92.323 Mammographic fibroglandular density, bilateral breasts
CPT/HCPCS: 77063; 77067

== ENCOUNTER 2025-06-07 22:48 | Emergency (ER) | payer OTHER, SELFPAY ==
[2025-06-07 22:51] VITALS: BP 189/85; PULSE 81; RESP 16; TEMP 36.4; O2SAT 97
--- OUTSIDE RECORDS SUMMARY | 2025-06-07 22:57 | XMS_ITS | Encounter Summary ---
Author Organization [facility] Address [address] [place] [address] Care Team Providers Care Plumbing Engineer Name Role Phone Unavailable Primary Care Provider Unavailabl e Encounter Details Date Type Department Care Team (Latest Contact Info) Description 04/04/[address] 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
--- OUTSIDE RECORDS SUMMARY | 2025-06-07 22:57 | XMS_ITS | Encounter Summary ---
Author Organization [facility] Address [address] [place] [address] Care Team Providers Care Sales Representative Malt [employer] Name Role Phone Unavailable Primary Care Provider Unavailabl e Encounter Details Date Type Department Care Team (Late st Contact Info) Description 06/08/2006 Outpatient Historical [facility] Medical [facility] [address] [place] [address] Non-Staff, Physician NO ADDRESS ON FILE Social History Tobacco Use Types Packs/Day Years Used Date Smoking Tobacco: Never Assessed Comments Unknown Sex and Gender Information Value Date Recorded Sex Assigned at Not on file 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
--- OUTSIDE RECORDS SUMMARY | 2025-06-07 22:57 | XMS_ITS | Encounter Summary ---
Author Organization [facility] Address [address] [place] [address] Care Team Providers Care International Marketing Executive Name Role Phone Unavailable Primary Care Provider Unavailabl e Encounter Details Date Type Department Care Team (Late st Contact Info) Description 01/29/2002 Outpatient Historical [facility] PLASTIC SURGERY Angel Martinez MD [facility] [address] [address] KELOID SCAR (Primary Dx) Social History Tobacco Use Types Packs/Day Years Used Date Smoking Tobacco: Never Assessed Comments Unknown Sex and Gender Information Value Date Recorded Sex Assigned at Not on file 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
--- OUTSIDE RECORDS SUMMARY | 2025-06-07 22:57 | XMS_ITS | Encounter Summary ---
Author Organization [facility] Address [address] [place] [address] Care Team Providers Care Direct Chill Casting Operator Name Role Phone Unavailable Primary Care Provider Unavailabl e Encounter Details Date Type Department Care Team (Latest Contact Info) Description 04/07/2006 Outpatient Historical [facility] Medical [facility] [address] [place] [address] Non-Staff, Physician NO ADDRESS ON FILE DM w/o Complication Type II, Uncontrolled (Primary Dx) Social History Tobacco Use Types Packs/Day Years Used Date Smoking Tobacco: Never Assessed Comments Unknown Sex and Gender Information Value Date Recorded Sex Assigned at Not on file 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
--- OUTSIDE RECORDS SUMMARY | 2025-06-07 22:57 | XMS_ITS | Clinical Summary ---
Author Organization [facility] Address [address] [place]: Epic Prelude ADT [place] [address] Care Team Providers Care Community Advocate Name Role Phone Unavailable Primary Care Provider Unavailabl e Social History Tobacco Use Types Packs/Day Years Used Date Smoking Tobacco: Never Assessed Comments Unknown Sex and Gender Information Value Date Recorded Sex Assigned at Not on file Legal Sex Female 5:22 AM PULP GRINDER FEEDER Gender Identity Not on file Sexual Orientation Not on file Plan of Treatment Health Maintenance Due Date Last Done Comments DTAP/TDAP/TD VACCINES (1 - Tdap) 11/26/1998 HEPATITIS B VACCINES (1 of 3 - 19+ 3-dose series) 11/16 HPV/Cotest (21-29) 11/26/2000 HPV VACCINES (1 - 3-dose SCDM series) 11/26/2006 CERVICAL CANCER SCREENING 11/26/2009 HPV/Cotest (30-65) 11/26/2009 PAP SMEAR 11/26/2009 BREAST CANCER SCREENING 2019 COLORECTAL SCREENING 11/26/2024 Colorectal Cancer Screening 11/26/2024 FIT-DNA Q 3 years 11/26/2024 FIT/FOBT Q 1 year 11/26/2024 Flex Sig/CT Colonography Q 5 years 11/26/2024 INFLUENZA VACCINE (#1) 2025
--- OUTSIDE RECORDS SUMMARY | 2025-06-07 22:57 | XMS_ITS | Encounter Summary ---
Author Organization [facility] Address [address] [place] [address] Care Team Providers Care Gasfitter Name Role Phone Unavailable Primary Care Provider Unavailabl e Encounter Details Date Type Department Care Team (Latest Contact Info) Description 05/08/2006 Outpatient Historical [facility] Medical [facility] [address] [place] [address] Non-Staff, Physician NO ADDRESS ON FILE DM w/o Complication Type II, Uncontrolled (Primary Dx) Social History Tobacco Use Types Packs/Day Years Used Date Smoking Tobacco: Never Assessed Comments Unknown Sex and Gender Information Value Date Recorded Sex Assigned at Not on file 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
--- OUTSIDE RECORDS SUMMARY | 2025-06-07 22:57 | XMS_ITS | Encounter Summary ---
Author Organization [facility] Address [address] [place] [address] Care Team Providers Care Spring Layer Name Role Phone Unavailable Primary Care Provider Unavailabl e Encounter Details Date Type Department Care Team (Latest Contact Info) Description 05/12/[address] [facility] Maternal and Medicine-Jose C willett [address] [place] [phone] Rizwan Gamboa II, MD [address] [facility] [address] [place] [address] Abnormal Maternal Glucose Tolerance, Antepartum (Primary Dx); Encounter for Long-Term (Current) Use of Insulin ([facility]) Social History Tobacco Use Types Packs/Day Years Used Date Smoking Tobacco: Never Assessed Comments Unknown Sex and Gender Information Value Date Recorded Sex Assigned at Not on file Legal Sex Female 5:22 AM INSULATION POWER UNIT TENDER Gender Identity Not on file Sexual Orientation Not on file documented as of this encounter Plan of Treatment Not on file documented as of this encounter Visit Diagnoses Diagnosis Abnormal maternal glucose tolerance, antepartum- Primary Encounter for long-term (current) use of insulin ([facility]) Encounter for long-term (current) use of insulin documented in this encounter
--- NOTE | 2025-06-08 00:26 | CTR_ITS ---
PROCEDURE INFORMATION: Exam: CT Maxillofacial With Contrast; Mandible Exam date and time: 06/08/2025 1:07 AM Age: 44 years old Clinical indication: Mass, lump, or swelling; Prior surgery; Surgery date: <1 month; Patient C/O left sided dental pain with left sided and anterior submandibular swelling after recent root canal. 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 Exam focused on the mandible. Radiation optimization: All CT scans at this facility use at least one of these dose optimization techniques: automated exposure control; mA and/or kV adjustment per patient size (includes targeted exams where dose is matched to clinical indication); or iterative reconstruction. Contrast material: OMNI 350; Contrast volume: 100 ml; Contrast route: INTRAVENOUS (IV); COMPARISON: CR XR cervical spine 3V* [id number] 01/15/2021 4:51 PM RADIATION DOSE METRICS: Total DLP (mGy-cm): 664.18 FINDINGS: Bones: Mandible is unremarkable. No acute fracture. Lymph nodes: Prominent left submandibular lymph node (level 2 B) measuring 0.7 x 1.9 cm, asymmetrically greater in size in comparison to right-sided nodes. However, this demonstrates a normal fatty hilum and morphology. Soft tissues: Soft tissues are normal without substantial fat stranding/inflammation. No drainable abscess is noted. Teeth: Dental restorations are noted. No periapical abscesses are noted. CT/CT facial bones w con [id number] IMPRESSION: 1. No acute maxillofacial abnormality. No periapical abscess. No evidence of soft tissue cellulitis/abscess. 2. Asymmetrically prominent left submandibular lymph node measuring up to 0.7 x 1.9 cm. However, this is morphologically normal, likely reactive. Correlate with physical exam.
[2025-06-08 00:32] VITALS: BP 169/93; PULSE 69; RESP 18; O2SAT 96
[2025-06-08 00:45] VITALS: RESP 18; O2SAT 96
[2025-06-08] MEDS: metroNIDAZOLE IV 500 MG/100 ML PREMIX 100 MG IV (00:45)
[2025-06-08] MEDS: cefepime 1,000 mg SDV 1000 MG IVP (00:45)
[2025-06-08] MEDS: morphine 4 mg/mL SDV 1 mL IVP ×2 (00:45→02:18)
[2025-06-08] MEDS: iohexol 350 mg/mL 500 mL Btl (per mL) IV (01:08)
[2025-06-08 01:39] LABS: Hematocrit 41.3 % (36-47); Hemoglobin 14.10 g/dL (11.27-16.99); Mean Corpuscular HGB Conc 34.1 g/dL (30-55); Mean Corpuscular Hemoglobin 28.2 pg (27-33); Mean Corpuscular Volume 82.6 fl (85-98); Nucleated Red Blood Cells % 0 %; Platelet Count 247 10^3/cmm (157-399); Red Blood Count 5.00 10^6/uL (3.85-5.65); White Blood Count 6.86 10^3/uL (3.29-11.43)
[2025-06-08 02:07] LABS: HCG, Serum Qual Negative (Negative)
[2025-06-08 02:08] LABS: Alanine Aminotransferase 27 U/L (0-33); Albumin Level 3.8 g/dL (3.5-5.2); Alkaline Phosphatase 121 U/L (35-105); Anion Gap 16.2 (5-19); Aspartate Amino Transferase 21 U/L (0-32); Blood Urea Nitrogen 10 mg/dL (6-20); Calcium 8.7 mg/dL (8.5-10.5); Carbon Dioxide 23 mmol/L (22-29); Chloride 100 mmol/L (98-107); Globulin 2.9 g/dL (1.3-4.6); Glucose 261 mg/dL (65-115); Osmolality Calculated 288 mOsm/kg (285-295); Potassium 4.2 mmol/L (3.5-5.1); Sodium 135 mmol/L (136-145); Total Protein 6.7 g/dL (6.6-8.7)
[2025-06-08 02:14] VITALS: BP 152/81; PULSE 68; RESP 16; O2SAT 95
[2025-06-08 02:18] VITALS: RESP 16; O2SAT 98
[2025-06-08 03:27] VITALS: BP 159/88; PULSE 73; RESP 18; O2SAT 95
--- NOTE | 2025-06-08 03:30 | W.ED.DENTAL ---
HPI - Dental/Oral General: Chief complaint: Dental/Oral Stated complaint: dental pain. swelling move into throat Time Seen by Provider: 06/08/25 00:15 History of Present Illness: 44 yo F with worsening left lower molar pain for about a week, spreading facial/submental swelling, and new numbness of the left lower lip and chin for 3 days. Pain is severe; rotating acetaminophen and ibuprofen every ~2 hours without relief; tramadol given today by dentist not helpful. Reports painful swallowing and occasional left-sided headache. Had a failed root canal on the left lower molar; dentist advised ER for possible IV antibiotics and noted tooth may need extraction once swelling improves. Denies intraoral drainage; hopes for relief of pressure. Appointment to redo root canal was scheduled for Jun 29 but likely cannot attend due to symptoms. ROS notable for painful swallowing; speech clear; no inability to open mouth fully (painful but able). Related Data Home Medications ?Medication ?Instructions ?Recorded ?Confirmed citalopram 40 mg tablet (Celexa) 40 mg PO DAILY 04/17/20 03/27/25 dulaglutide 1.5 mg/0.5 mL 1.5 mg SUBCUT Q7D 04/17/20 03/27/25 subcutaneous pen injector (Trulicity) empagliflozin 25 mg tablet 25 mg PO DAILY 04/17/20 03/27/25 (Jardiance) levonorgestrel (Mirena) 1 device intrauterine .Q5 YEARS 04/17/20 03/27/25 metformin 750 mg tablet,extended 750 mg PO DAILY 04/17/20 03/27/25 release 24 hr omeprazole 40 mg capsule,delayed 40 mg PO DAILY 06/18/23 03/27/25 release Previous Rx's ?Medication ?Instructions ?Recorded bacitracin 500 unit/gram topical 1 applic topical BID #1,022.4 grams 01/15/24 ointment acarbose 25 mg tablet 25 mg PO TID 30 days #90 tabs 03/13/25 silver sulfadiazine 1 % topical 1 applic topical BID #20 grams 03/13/25 cream (Silvadene) oxycodone-acetaminophen 5 mg-325 1 tab PO Q8H PRN pain #20 tabs 06/08/25 mg tablet (Percocet) Allergies Allergy/AdvReac Type Severity Reaction Status Date / Time amoxicillin Allergy ALGY-Rash Verified 06/07/25 22:56 PFS ED PFSH: Medical History (Updated 06/08/25 @ 03:13 by Gilbert Lopez MD) Hyperlipemia, mixed H/O Burris's palsy Genital herpes No pertinent past medical history neghx: htn,thyroid,dvt/pe Anxiety Type 2 diabetes mellitus Surgical History H/O carpal tunnel repair Both--Performed at [facility] [place] and surgical center H/O section 1--2001 2--2005 3--2010 Family History Father Hypertension Diabetes Mother Diabetes Grandmother Heart disease Maternal grandmother Ovarian cancer Maternal grandmother Uterine cancer Maternal grandmother Family/Other Colon cancer Paternal uncle Breast cancer Paternal aunt Maternal great aunt Paternal great aunt Grandfather Stroke Maternal grandfather Denies family history of Hyperlipidemia Family history of thyroid problem Social History Smoking and tobacco/nicotine status: unknown if used tobacco/nicotine Additional social history: - Tobacco use: Denies Alcohol use: Denies Drug use: Denies Physical Exam Narrative: EXAM NARRATIVE: HEENT: Bottom back left molar identified as symptomatic tooth. No intraoral abscess appreciated that is amenable to I&D. No swelling under the tongue. Clear phonation. Able to open mouth completely, with pain. Neck: Submental region firm and swollen, crossing the midline; more pronounced on the left. Const: COMMON NORMALS: no acute distress, patient oriented x3 and alert Eye: COMMON NORMALS: Equal, round and reactive pupils present, EOMs intact bilaterally and no scleral icterus PUPIL: Yes Equal, round and reactive pupils present Resp: COMMON NORMALS: normal respiratory effort and No retractions Cardio: COMMON NORMALS: regular rate, regular rhythm and No murmurs present (Cardio) RATE: regular rate RHYTHM: regular rhythm GI: COMMON NORMALS: Normal to inspection, nondistended, normoactive bowel sounds present, Soft to palpation and non-tender PALPATION: Yes Soft to palpation Neuro: COMMON NORMALS: patient oriented x3 SENSORIUM/ORIENTATION: Yes alert Skin: COMMON NORMALS: no rashes or lesions noted GENERAL SKIN EXAM: no rashes or lesions noted Course Vital Signs: Vital signs: Vital Signs Temperature 97.5 F L 06/07/25 22:51 Pulse Rate 73 06/08/25 03:27 Respiratory Rate 18 06/08/25 03:27 Blood Pressure 159/88 06/08/25 03:27 Pulse Oximetry 95 06/08/25 03:27 Oxygen Delivery Me thod Room Air 06/08/25 02:14 MDM - Dental/Oral Medical Decision Making 44 yo F with severe left lower molar pain, progressive submental/left facial swelling, and numbness of left lower lip/chin. On cephalexin and clindamycin started today; tramadol ineffective. Painful swallowing, able to fully open mouth. PE: Submental swelling/firmness crossing midline; no intraoral fluctuance; no [id number] swelling; clear phonation; full but painful mouth opening. Odontogenic infection with concern for early deep neck space involvement. Travis?s angina considered due to submental firmness and midline involvement; less likely given no [id number] swelling and preserved phonation and mouth opening. No intraoral abscess appreciated for I&D. IV access with analgesia planned. IV antibiotics to be initiated. CT imaging of the affected region ordered to assess for deep space infection; oral surgery consult to be obtained if imaging indicates drainage or operative management. Fortunately, CT scan does not show evidence of Travis's angina. There is a reactive lymph node in the left submental space causing her swelling and pain. She will be discharged with a short course of Percocet and will continue taking her clindamycin and follow-up with dentist. Lab Data 06/08/25 01:33 06/08/25 01:[address] 06/08/25 00:26 IMPRESSION: 1. No acute maxillofacial abnormality. No periapical abscess. No evidence of soft tissue cellulitis/abscess. 2. Asymmetrically prominent left submandibular lymph node measuring up to 0.7 x 1.9 cm. However, this is morphologically normal, likely reactive. Correlate with physical exam. Laboratory Results WBC 6.86 10^3/uL (3.29-11.43) 06/08/25 01:33 RBC 5.00 10^6/uL (3.85-5.65) 06/08/25 01:33 Hgb 14.10 g/dL (11.27-16.99) 06/08/25 01:33 Hct 41.3 % (36-47) 06/08/25 01:33 MCV 82.6 fl (85-98) L 06/08/25 01:33 MCH 28.2 pg (27-33) 06/08/25 01:33 MCHC 34.1 g/dL (30-55) 06/08/25 01:33 RDW 14.3 % (12.1-15.1) 06/08/25 01:33 Plt Count 247 10^3/cmm (157-399) 06/08/25 01:33 MPV 9.3 fL (7.4-10.4) 06/08/25 01:33 Neut % (Auto) 53.2 % 06/08/25 01:33 Lymph % (Auto) 35.0 % 06/08/25 01:33 Louisa % (Auto) 7.0 % 06/08/25 01:33 Eos % (Auto) 3.5 % 06/08/25 01:33 Baso % (Auto) 0.4 % 06/08/25 01:33 Neut # (Auto) 3.65 10^3/uL (1.8-7.7) 06/08/25 01:33 Lymph # (Auto) 2.4 10^3/uL (0.8-4.8) 06/08/25 01:33 Louisa # (Auto) 0.5 10^3/uL (0.2-0.9) 06/08/25 01:33 Eos # (Auto) 0.2 10^3/uL (0.0-0.8) 06/08/25 01:33 Baso # (Auto) 0.0 10^3/uL (0.0-0.1) 06/08/25 01:33 Nucleated RBC % (auto) 0 % 06/08/25 01:33 Nucleated RBCs # 0.0 /100WBC 06/08/25 01:33 Sodium 135 mmol/L (136-145) L 06/08/25 01:33 Potassium 4.2 mmol/L (3.5-5.1) 06/08/25 01:33 Chloride 100 mmol/L (98-107) 06/08/25 01:33 Carbon Dioxide 23 mmol/L (22-29) 06/08/25 01:33 Anion Gap 16.2 (5-19) 06/08/25 01:33 BUN 10 mg/dL (6-20) 06/08/25 01:33 Creatinine 0.4 mg/dL (0.5-0.9) L 06/08/25 01:33 GFR Calculation 172.6 mL/min (90-130) H 06/08/25 01:33 Glucose 261 mg/dL (65-115) H 06/08/25 01:33 Calculated Osmolality 288 mOsm/kg (285-295) 06/08/25 01:33 Calcium 8.7 mg/dL (8.5-10.5) 06/08/25 01:33 Total Bilirubin 0.3 mg/dL (0.15-1.2) 06/08/25 01:33 AST 21 U/L (0-32) 06/08/25 01:33 ALT 27 U/L (0-33) 06/08/25 01:33 Alkaline Phosphatase 121 U/L (35-105) H 06/08/25 01:33 Total Protein 6.7 g/dL (6.6-8.7) 06/08/25 01:33 Albumin 3.8 g/dL (3.5-5.2) 06/08/25 01:33 Globulin 2.9 g/dL (1.3-4.6) 06/08/25 01:33 HCG, Qual Negative (Negative) 06/08/25 01:33 All radiology interpretation(s) finalized by discharge Discharge Plan Discharge Patient Disposition: Home Clinical Impression: Dental infection Condition: Stable Prescriptions: New oxycodone-acetaminophen [Percocet] 5-325 mg tablet 1 tab PO Q8H PRN (Reason: pain) Qty: 20 0RF No Action Mirena 20 mcg/24 hours (5 yrs) 52 mg intrauterine device 1 device INTRAUTERI .Q5 YEARS citalopram [Celexa] 40 mg tablet 40 mg PO DAILY metformin 750 mg tablet extended release 24 hr 750 mg PO DAILY Jardiance 25 mg tablet 25 mg PO DAILY Trulicity 1.5 mg/0.5 mL pen injector 1.5 mg SUBCUT Q7D Rx Instructions: (ON WEEKEND) acarbose 25 mg tablet 25 mg PO TID 30 Days Qty: 90 0RF silver sulfadiazine [Silvadene] 1 % cream 1 applic topical BID Qty: 20 1RF Rx Instructions: apply a 1.5 mm thickness omeprazole 40 mg capsule,delayed release(DR/EC) 40 mg PO DAILY bacitracin 500 unit/gram ointment 1 applic topical BID Qty: 1022.4 0RF Discharge Orders: Discharge ED (Routine); Ordered 06/08/25 Ordered By: Gilbert Lopez Referrals: Gisela Kim NP [Primary Care Provider, Unknown] Discharge Diet: Advance as tolerated Discharge Activity: Increase activity as tolerated Patient Instructions: Dental Abscess (ED), Opioid Safety, Pain Management, Patient Portal & Rashmi Instructions Activity Restrictions/Additional Instructions: Please continue to take your clindamycin. If you are prescribed other antibiotics you do not have to take them in concert with clindamycin. It is safe to continue taking ibuprofen alongside Percocet for pain control until you receive definitive management by your dentist Print Language: Yakut Coding Level of Care Code ED Vulcanizing Press Operator for Darby Pimentel
== END 2025-06-08 03:28 | disposition home or self-care (01) ==
PROVIDERS: Emergency Provider Student in an Organized Health Care Education/Training Program; PCP Nurse Practitioner Family
DX: K04.7 Periapical abscess without sinus (principal); Z79.84 Long term (current) use of oral hypoglycemic drugs; Z79.85 Long-term (current) use of injectable non-insulin antidiabetic drugs; E78.2 Mixed hyperlipidemia; E11.9 Type 2 diabetes mellitus without complications
CPT/HCPCS: 36415; 70487; 80053; 84703; 85025; 96365; 96375; 96376; 99285; J0692; J2270; J3490